=== PATIENT | male | born 1955 | race Two or more races ===

== ENCOUNTER → 2017-08-03 | Outpatient (CLI) | payer BC ==
[~2017-08-03] VITALS: Ht 180.3 cm; Wt 78.1 kg
[~2017-08-03] MED LIST: ALDACTONE25 MG PO; ASPIR 8181 M1 PO; CILOSTAZOL100 MG PO; COREG25 M1 PO; FOLIC ACID0.8 MG PO; LIPITOR10 MG PO; MULTIPLE VITAM1 EAC1 PO; MULTIVITAMIN W1 EAC7 PO; NORVASC5 MG PO; PRINIVIL20 MG PO
== END | disposition home or self-care (01) ==
LOC: AMB 10:00
PROVIDERS: Internal Medicine Gastroenterology
PROC: 0DJD8ZZ Inspection of Lower Intestinal Tract, Via Natural or Artificial Opening Endoscopic (ICD-10-PCS; principal; 2017-08-03)
DX: C20 Malignant neoplasm of rectum (principal); K63.5 Polyp of colon; F17.200 Nicotine dependence, unspecified, uncomplicated; Z53.09 Procedure and treatment not carried out because of other contraindication
CPT/HCPCS: 82948; 93005; C1726

== ENCOUNTER → 2017-11-18 | Outpatient (CLI) | payer BC ==
[~2017-11-18] VITALS: Ht 182.9 cm; Wt 127.0 kg
[~2017-11-18] MED LIST changes: +METFORMIN HCL500 MG PO
== END | disposition home or self-care (01) ==
LOC: AMB 13:20
PROVIDERS: Internal Medicine Gastroenterology
DX: C20 Malignant neoplasm of rectum (principal); C18.6 Malignant neoplasm of descending colon; D12.2 Benign neoplasm of ascending colon; D12.3 Benign neoplasm of transverse colon; K63.5 Polyp of colon; K57.30 Diverticulosis of large intestine without perforation or abscess without bleeding; Z86.010 Personal history of colon polyps; Z92.21 Personal history of antineoplastic chemotherapy; Z92.3 Personal history of irradiation; I11.0 Hypertensive heart disease with heart failure; I50.9 Heart failure, unspecified; R73.03 Prediabetes; Z90.49 Acquired absence of other specified parts of digestive tract; Z80.0 Family history of malignant neoplasm of digestive organs; Z80.8 Family history of malignant neoplasm of other organs or systems; F17.200 Nicotine dependence, unspecified, uncomplicated
CPT/HCPCS: 82948; 88305; J2250